=== PATIENT | female | born 1970 | race Caucasian/White ===

== ENCOUNTER 2025-02-11 09:37 | Emergency (ER) | payer OTHER ==
[~2025-02-11] VITALS: Ht 157.5 cm; Wt 74.0 kg
[~2025-02-11 09:37] MED LIST: FERR-43 PO; LEVO125T8 PO
[2025-02-11 09:48] VITALS: O2SAT 98
[2025-02-11] MEDS: DIPHENHYDRAMINE 50MG CAPSULE PO ONE (10:10)
[2025-02-11] MEDS ORDERED: DIPH25CA83 PO (10:23)
[2025-02-11 10:29] VITALS: BP 115/73; PULSE 80; RESP 16; TEMP 36.9; O2SAT 98
== END 2025-02-11 10:30 | disposition home or self-care (01) ==
LOC: ER 09:37
DX: T78.40XA Allergy, unspecified, initial encounter (principal); E11.9 Type 2 diabetes mellitus without complications; Z79.890 Hormone replacement therapy; Y92.89 Other specified places as the place of occurrence of the external cause
CPT/HCPCS: 99282; Q0163